=== PATIENT | female | born 1945 | race African-American/Black ===

== ENCOUNTER 2019-07-04 23:07 | Emergency (ER) | payer OTHER, MEDICAID ==
[~2019-07-04] VITALS: Ht 165.1 cm; Wt 100.0 kg
[2019-07-05] MEDS ORDERED: CLONIDINE 0.2MG TABLET PO ONE (01:30)
[2019-07-05 02:07] LABS: BASOPHILS % 0.4 % (0.0-2.0); HEMOGLOBIN. 15.1 g/dL (12.0-16.0); LYMPHOCYTES % 18.7 % (20.0-50.0); MEAN CORPUSCULAR HEMOGLOBIN 30.8 pg (28.0-32.0); MEAN CORPUSCULAR VOLUME 89.4 fL (81.0-99.0); MEAN PLATELET VOLUME 7.6 fl (7.4-10.4); MONOCYTES % 13.8 % (2.0-8.0); NEUTROPHILS % 66.1 % (40.0-76.0); PLATELET 161 x1000/uL (130-400); RED BLOOD CELL COUNT 4.92 mill/uL (4.2-5.4); RED CELL DISTRIBUTION WIDTH 13.4 % (11.6-14.6)
[2019-07-05 02:11] LABS: CHLORIDE 104 mEq/L (98-107)
[2019-07-05] MEDS ORDERED: DEXT 10% WATER 1,000 ML IV ONE (03:30)
[2019-07-05 06:04] VITALS: BP 159/90
== END 2019-07-05 06:12 | disposition short-term general hospital (02) ==
LOC: ER 23:07
DX: E11.649 Type 2 diabetes mellitus with hypoglycemia without coma (principal); G93.40 Encephalopathy, unspecified; E78.00 Pure hypercholesterolemia, unspecified; I10 Essential (primary) hypertension; Z88.3 Allergy status to other anti-infective agents; Z90.49 Acquired absence of other specified parts of digestive tract; Z90.710 Acquired absence of both cervix and uterus
CPT/HCPCS: 36415; 71045; 80053; 82962; 84484; 85025; 93005; 96360; 99285

== ENCOUNTER 2024-09-20 18:21 | Emergency (ER) | payer OTHER, MEDICAID ==
[~2024-09-20] VITALS: Ht 170.2 cm; Wt 100.0 kg
[2024-09-20 18:26] VITALS: O2SAT 100
[2024-09-20 19:14] VITALS: TEMP 37.1
[2024-09-20] MEDS: MORPHINE SULFATE 4 MG/ML INJ (FOR IV/IM USE) IV STA (19:57)
[2024-09-20] MEDS: ONDANSETRON HCL 4MG/2ML INJ IV STA (19:58)
[2024-09-20 20:16] VITALS: O2SAT 95
[2024-09-20 20:22] LABS: CARBON DIOXIDE 27 mEq/L (21-32); CHLORIDE 102 mEq/L (98-107); POTASSIUM 4.5 mEq/L (3.5-5.1); SODIUM 138 mEq/L (136-145)
[2024-09-20 20:23] LABS: CALCIUM 9.6 mg/dL (8.7-10.4)
[2024-09-20 20:24] LABS: INR 1.1; PROTHROMBIN TIME 11.9 sec (9.6-11.0)
[2024-09-20 20:27] LABS: CREATININE 1.9 mg/dL (0.6-1.0)
[2024-09-20 20:28] LABS: GLUCOSE 119 mg/dL (70-105); UREA NITROGEN BLOOD 18 mg/dL (9-23)
[2024-09-20 20:29] LABS: ALANINE AMINOTRANSFERASE 21 IU/L (10-49); ALBUMIN 3.9 g/dL (3.2-4.8); ASPARTATE AMINOTRANSFERASE 49 IU/L (<34)
[2024-09-20 20:30] LABS: BILIRUBIN DIRECT 0.2 mg/dL (<=3.0); BILIRUBIN TOTAL 0.8 mg/dL (0.1-1.0); PROTEIN TOTAL 8.4 g/dL (6.0-8.3)
[2024-09-20 20:47] LABS: BASOPHILS % 0.3 % (0.0-2.0); EOSINOPHILS % 0.6 % (0.0-5.0); HEMATOCRIT. 38.4 % (36.0-48.0); HEMOGLOBIN. 12.9 g/dL (12.0-16.0); LYMPHOCYTES % 12.5 % (20.0-50.0); MEAN CORPUSCULAR HEMOGLOBIN 29.8 pg (28.0-32.0); MEAN CORPUSCULAR HGB CONC 33.5 g/dL (31.0-37.0); MEAN PLATELET VOLUME 7.6 fl (7.4-10.4); MONOCYTES % 11.5 % (2.0-8.0); NEUTROPHILS % 75.1 % (40.0-76.0); PLATELET 131 x1000/uL (130-400); RED BLOOD CELL COUNT 4.32 mill/uL (4.2-5.4); RED CELL DISTRIBUTION WIDTH 13.2 % (11.6-14.6)
[2024-09-20] MEDS ORDERED: OXYC-104 MT (21:17)
[2024-09-20 21:51] VITALS: BP 159/69; PULSE 62; RESP 13
[2024-09-20] MEDS: OXYCODONE HCL/ACETAMINOPHEN 5/325MG TABLET PO ONE (21:51)
== END 2024-09-20 21:58 | disposition home or self-care (01) ==
LOC: ER 18:21
DX: G89.18 Other acute postprocedural pain (principal); I10 Essential (primary) hypertension; E11.9 Type 2 diabetes mellitus without complications; Z88.1 Allergy status to other antibiotic agents; Z90.710 Acquired absence of both cervix and uterus; Z90.49 Acquired absence of other specified parts of digestive tract
CPT/HCPCS: 99285; 74176; 96374; 96375; 80076; 80048; 83690; 85025; 85610; 36415; J2405; J2270